=== PATIENT | male | born 1995 | race African-American/Black ===

== ENCOUNTER 2020-02-23 02:06 | Emergency (ER) | payer OTHER ==
[~2020-02-23] VITALS: Ht 172.7 cm; Wt 68.0 kg
[2020-02-23] MEDS ORDERED: HYDROCODON-ACE1 EAC8 PO (02:13)
[2020-02-23] MEDS ORDERED: IBUPROFEN 600600 M1 PO (02:13)
[2020-02-23 02:46] LABS: URINE BILIRUBIN NEGATIVE (Negative); URINE BLOOD NEGATIVE (Negative); URINE CLARITY CLEAR; URINE COLOR YELLOW; URINE GLUCOSE-RANDOM* NEGATIVE (Negative); URINE KETONES NEGATIVE (Negative); URINE LEUKOCYTES-REFLEX NEGATIVE (Negative); URINE NITRITE-REFLEX NEGATIVE (Negative); URINE PROTEIN (DIPSTICK) NEGATIVE (Negative); URINE SPECIFIC GRAVITY 1.025 (1.005-1.035)
[2020-02-23 02:46] LABS: BASOPHILS 0.8 % (0.0-2.0); HEMATOCRIT 41.8 % (42.0-52.0); HEMOGLOBIN 13.7 gm/dL (14.0-18.0); LYMPHOCYTES 30.1 % (24.0-44.0); MCH 27.6 pg (26.0-34.0); MCHC 32.7 g/dL (28.0-37.0); MCV 84.3 fL (80.0-100.0); MONOCYTES 7.6 % (1.0-8.0); PLATELET COUNT 250 thou/uL (150-400); POLYS 59.5 % (36.0-66.0); RBC 4.95 mil/uL (4.50-6.00); RDW 13.6 % (10.5-14.5); WBC 11.7 thou/uL (4.0-11.0)
[2020-02-23 02:50] LABS: CALCIUM 8.9 mg/dL (8.5-10.1); CREATININE 1.2 mg/dL (0.7-1.3); POTASSIUM 3.8 mmol/L (3.5-5.1)
[2020-02-23 02:55] LABS: ALBUMIN 4.3 g/dL (3.4-5.0); TOTAL BILIRUBIN 0.2 mg/dL (<0.1-1.0); TOTAL PROTEIN 7.6 g/dL (6.4-8.2)
[2020-02-23] MEDS ORDERED: NAPROSYN500 MG PO (03:55)
[2020-02-23] MEDS ORDERED: METHOCARBAMOL500 M2 PO (03:55)
[2020-02-23 04:05] VITALS: BP 129/66
== END 2020-02-23 04:14 | disposition home or self-care (01) ==
LOC: ER 02:06
PROVIDERS: Emergency Medicine
DX: R10.12 Left upper quadrant pain (principal); R07.81 Pleurodynia; M54.5 Low back pain; M54.6 Pain in thoracic spine; Z79.899 Other long term (current) drug therapy